=== PATIENT | female | born 1990 | race Two or more races ===

== ENCOUNTER 2025-03-22 00:05 | Emergency (ER) | payer MEDICAID, SELFPAY ==
[2025-03-22 00:06] VITALS: BMI 32.5
[2025-03-22 00:24] VITALS: BP 119/83; PULSE 87; RESP 18; TEMP 36.9; O2SAT 98
--- NOTE | 2025-03-22 00:33 | XR_ITS ---
Examination: Transvaginal ultrasound of the pelvis, complete Technique: Transvaginal sonographic images pelvis performed using walden scale imaging Exam date and time: March 22, thousand 25, 0156 hrs. Indications: Pelvic pain beginning 3 hours ago, history hemorrhagic pelvic cysts Findings: Uterus 8.3 cm endometrial stripe 0.64 cm No uterine mass or intrauterine gestation Moderate free fluid in the cul-de-sac Right ovary 3.7 cm arterial flow. Left ovary 2.1 cm arterial flow Impression: No uterine mass or intrauterine gestation Moderate free fluid in the cul-de-sac, differential would include pelvic inflammatory disease, clinical correlation advised.
--- NOTE | 2025-03-22 00:33 | XR_ITS ---
Examination: CT abdomen and pelvis without contrast. Coronal 3-D reconstructions. Sagittal 2-D reconstructions. Date and time of exam: 926, T2 thousand 25, 0121 hrs., Comparison April 15, 2010 Indications: Onset right-sided flank pain today CTDI: vol (mGy): 11.51 DLP: (mGycm): 634 Technique: Axial images of the abdomen have been obtained, 3 mm slice thickness Intravenous contrast material has not been administered. Low dose protocols were performed. One or more of the following dose reduction techniques were used; automated exposure control, adjustment of the mA and/or KV according to patient size, use of iterative reconstruction technique. Findings: No focal liver or splenic lesion Gallstones No pancreatic or adrenal mass No renal or ureteral calculi, no hydronephrosis Aorta normal size Normal appendix No bowel obstruction Free fluid in the pelvis Prominent right adnexal region Contracted urinary bladder The osseous structures are intact Impression: Cholelithiasis No renal or ureteral calculi, no hydronephrosis Normal appendix Contracted urinary bladder, no bladder mass or bladder calculi
--- NOTE | 2025-03-22 00:35 | PD.EDRME ---
Rapid Medical Screening Exam RME Arrival date/time: 03/22/25 00:05 34F with no significant PMH presents to ED with sudden R flank/pelvic pain and possible hematuria. There is also N/V. Patient is not on cycle. Chief Complaint: Abdominal Pain Vital signs: Vital Signs Temperature 98.4 F 03/22/25 00:24 Pulse Rate 87 03/22/25 00:24 Respiratory Rate 18 03/22/25 00:24 Blood Pressure 119/83 03/22/25 00:24 Pulse Oximetry (%) 98 03/22/25 00:24 Oxygen Delivery Method Room Air 03/22/25 00:24
[2025-03-22 00:47] LABS: Collection Type, Urine Clean Catch
[2025-03-22 00:50] LABS: Basophils # (Auto) 0.1 Thou/mm3 (0.0-0.2); Basophils % (Auto) 0 % (0-2.5); Eosinophils # (Auto) 0.2 Thou/mm3 (0.0-0.5); Eosinophils % (Auto) 2 % (0-10); Hematocrit 38.8 % (36.0-46.0); Hemoglobin 12.7 g/dL (12.0-16.0); Immature Granulocytes Auto 0.05 Thou/mm3 (0.00-0.00); Lymphocytes # (Auto) 2.7 Thou/mm3 (1.0-4.8); Lymphocytes % (Auto) 20 % (10-50); Mean Corpuscular HGB Conc 32.7 g/dl (31.0-37.0); Mean Corpuscular Hemoglobin 27.4 pg (25.0-35.0); Mean Corpuscular Volume 84 fL (80-100); Monocytes # (Auto) 1.0 Thou/mm3 (0.0-0.8); Monocytes % (Auto) 8 % (0-12); Neutrophils # (Auto) 9.4 Thou/mm3 (1.8-7.7); Neutrophils % (Auto) 70 % (37-80); Nucleated Red Blood Cell # 0.00 Thou/mm3 (0.00-0.00); Nucleated Red Blood Cell % 0 /100 WBC (0); Platelet Count 320 Thou/mm3 (140-440); RDW Standard Deviation 40.7 fL (36.4-46.3); Red Blood Count 4.64 Miln/mm3 (4.00-5.20); White Blood Count 13.4 Thou/mm3 (3.6-11.0)
[2025-03-22 00:56] LABS: Bacteria,Urine Rare; Bilirubin,Urine Negative (Negative); Blood,Urine Negative (Negative); Clarity,Urine Clear (Clear/Hazy); Color,Urine Colorless (Lt Yel-Yel); Culture Indicated,Urine Yes; Glucose, Urine Negative (Negative); HCG Qualitative,Urine Negative; Ketones,Urine Negative (Negative); Leukocyte Esterase,Urine Positive (Negative); Nitrite,Urine Negative (Negative); PH,Urine 6.5 (5.0-7.0); Protein,Urine Negative (Neg - Trace); RBC,Urine 1 /hpf (0-3); Specific Gravity,Urine 1.009 (1.001-1.035); Squamous Epithelial Cell,Urine 1 /hpf (0-5); Urobilinogen,Urine Negative mg/dL (0.0-1.0); WBC,Urine 16 /hpf (0-5)
[2025-03-22 00:59] LABS: Amphetamine/Methamp Scrn,U Negative (Negative); Barbiturate Screen,Urine Negative (Negative); Benzodiazepines Screen,Urine Negative (Negative); Benzoylecgonine Screen, Ur Negative (Negative); Fentanyl Screen,Urine Negative (Negative); Opiate Screen,Urine Negative (Negative); THC Screen,Urine Negative (Negative)
[2025-03-22 01:08] LABS: Alanine Aminotransferase 27 U/L (10-49); Albumin, Serum 4.3 gm/dL (3.5-5.0); Albumin/Globulin Ratio 1.9 (1.2-2.2); Alkaline Phosphatase 59 U/L (46-116); Anion Gap 8 (7-16); Aspartate Amino Transferase 25 U/L (0-34); BUN/Creatinine Ratio 9 Ratio (12-20); Bilirubin,Total 0.5 mg/dL (0.3-1.2); Blood Urea Nitrogen 7 mg/dL (9-23); Calcium 9.4 mg/dL (8.3-10.6); Calcium (Corrected) 9.4 mg/dL (8.5-10.1); Carbon Dioxide 27.6 mMol/L (20.0-31.0); Chloride 106 mMol/L (98-107); Creatinine (Component) 0.8 mg/dL (0.6-1.3); Estimated Creatinine Clearance 96.6 mL/min (>60); Globulin 2.3 gm/dL (2.3-3.5); Glucose 91 mg/dL (74-106); Osmolality,Calculated 281 (275-295); Potassium 3.9 mMol/L (3.4-5.1); Sodium 142 mMol/L (136-145); Total Protein 6.6 gm/dL (5.7-8.2); eGFR > 60 See Note
[2025-03-22] MEDS: ONDANSETRON ODT 4 MG TABRAP PO (01:50)
[2025-03-22] MEDS: KETOROLAC INJ 30 MG/ML VIAL IM (01:51)
--- NOTE | 2025-03-22 02:27 | PRELIM_ITS ---
CT scan of the abdomen and pelvis without intravenous contrast (axial sections with sagittal and coronal reformats) March 22, 2025 at 0121 hours Clinical History: Right flank pain. Comparison: None. Findings: No evidence of renal/ureteric calculus or hydroureteronephrosis. The gallbladder is contracted and demonstrates intraluminal hyperdensity, which may represent calculi. The liver, pancreas, spleen and adrenals are unremarkable on this noncontrast study. No evidence of bowel obstruction. The appendix is within normal limits (images [id number]). The urinary bladder is partially distended and shows mild wall thickening; possibility of cystitis cannot be excluded. The uterus is unremarkable. The right adnexa appears prominent with subtle heterogeneous density (image 173/266), measuring 4.7 x 3.6 cm. The right gonadal vein also appears prominent and slightly distended. A small amount of free fluid is seen in the lower abdomen and pelvis. There is no free air. The osseous structures are unremarkable. The lung bases are clear. Please note that evaluation of soft tissue/vascular structures and bowel loops is limited due to absence of IV and oral contrast. Impression: 1. No evidence of renal/ureteric calculus or hydroureteronephrosis. 2. Contracted gallbladder with intraluminal hyperdensity, which may represent calculi. 3. No evidence of acute appendicitis. 4. Prominent heterogeneous right adnexa with free fluid as described, of unclear etiology. Suggest further evaluation with sonography, if clinically indicated. 5. Partially distended urinary bladder with mild wall thickening; possibility of cystitis cannot be excluded. 6. Other findings as described above. Suggest clinical correlation and follow up accordingly. Report Electronically Signed By: Will Davis 03/22/2025 2:26:43 AM [EST]
--- NOTE | 2025-03-22 03:35 | PRELIM_ITS ---
Pelvic ultrasound (transvaginal). March 22, 2025 0156 hours Clinical history: R pelvic pain Technique: Real-time, grayscale, transvaginal pelvic ultrasound was performed using Duplex scanning including arterial inflow, venous outflow, color and spectral Doppler. Findings: The uterus is normal in size measuring 8.3x4.5x5.8cm. The endometrium is unremarkable and measures 0.64cm. No mass or cystic structures are seen. The right ovary measures 3.7x1.7x3.4cm and is unremarkable. The left ovary measures 2.1x1.8x1.4cm and is unremarkable. Both ovaries demonstrate color flow and spectral waveforms on Doppler evaluation. There is no adnexal mass. Jbsx-ij-xhpdmnld amount of free fluid is seen in the cul-de-sac. Impression: No sonographic evidence of ovarian torsion is demonstrated on the submitted images. Yoop-gy-tytmeaxh amount of free fluid is seen in the cul-de-sac. Recommend clinical correlation and follow-up. Report Electronically Signed By: Milton Sher 03/22/2025 3:35:35 AM [EST]
--- NOTE | 2025-03-22 04:38 | PD.EDABDPN ---
ED Abdominal Pain RME/HPI General Chief Complaint: Abdominal Pain Stated complaint: RIGHT LOWER ABD PAIN Time seen by provider: 03/22/25 04:13 Arrival date/time: 03/22/25 00:05 RME / HPI RME / HPI narrative: 03/22/25 00:05 34F with no significant PMH presents to ED with sudden R flank/pelvic pain and possible hematuria. There is also N/V. Patient is not on cycle. DR. KELLER MAIN ED EVALUATION: Patient presents with sudden onset RL abdominal/pelvic pain radiating towards the right flank region shortly after having intercourse this evening. Pain is sharp and constant. No fever, chills, or dysuria. Denies abnormal vaginal discharge. PMH: Ovarian cyst, No DM or HTN. PSH: Ovarian cystectomy Social: Negative for tobacco, alcohol and illicit drug use. Allergies: None Related Data Previous Rx's ?Medication ?Instructions ?Recorded pantoprazole 40 mg tablet,delayed 40 mg PO QDAY #30 tabs 06/05/18 release (Protonix) hydrocodone 5 mg-acetaminophen 325 1 tab PO Q8H PRN pain #20 tabs 03/22/25 mg tablet naproxen 250 mg tablet 250 mg PO BID PRN pain #10 tabs 03/22/25 promethazine 12.5 mg tablet 12.5 mg PO TID PRN nausea and 03/22/25 vomiting #10 tabs Allergies Allergy/AdvReac Type Severity Reaction Status Date / Time No Known Allergies Allergy Verified 03/22/25 00:06 Review of Systems Review of Systems Systems Reviewed: All systems reviewed, normal except as documented Past Medical History Past Medical History REPRODUCTIVE: Positive Previous Pregnancies OTHER HISTORY: Positive Blood Transfusions Surgical History SURGICAL: Positive Section ED Exam Narrative Physical exam: GEN. APPEARANCE: The patient is alert awake oriented X-3 in no distress, lying down comfortably, does not look ill/toxic. Patient has good eye contact. Patient is cooperative. VITALS: All vitals were reviewed and the pulse ox is 98% on room air which is normal according to my interpretation. HEENT: Normocephalic, atraumatic. Pupils are equal and reactive. Oral mucosa is moist. Patent Nares NECK: Supple, nontender, no thyromegaly, no meningismus, no JVD, no step offs CHEST: Symmetrical, atraumatic, and with equal expansion , Nontender on palpation no deformity and no crepitus. CARDIOVASCULAR: Heart regular rhythm no murmur or gallop rub or extra beats. LUNGS: Clear to auscultation bilaterally with symmetrical chest rise. No laboring tachypnea or wheezing. No intercostal subcostal retraction. No rales and no rhonchi. ABDOMEN: Soft, flat, gybr-ug-rwiwvarz tenderness at the suprapubic/RLQ abdomen, slight guarding, no peritoneal findings noted. There are no abnormal masses palpated. Active and normal bowel sounds. EXTREMITIES: Nontender. No edema. No cyanosis. Patient is able to move all 4 extremities well, with full ROM and good CSM. SKIN: Warm and dry, no jaundice or rashes noted. MUSCULOSKELETAL: No lubar or midline bony tenderness. There is no CVA tenderness. No paraspinal muscle spasm or tenderness. NEURO: Patient is HAYNES x 4, Cranial nerves II through XII grossly intact. There is no focal neurologic deficits noted. GCS is 15, PNS and STAFF PHARMACIST appear grossly intact. PSYCHIATRIC: Patient is in normal mood and affect, cooperative, no SI or HI or hallucinations. Course Quality Measures none Orders Category Date Time Status CT abdomen pelvis wo con Stat Exams 03/22/25 00:33 Taken US transvaginal Stat Exams 03/22/25 00:33 Taken CBC Stat Lab 03/22/25 00:40 Completed CBC Stat Lab 03/22/25 04:53 Completed CMP [Comprehensive Metabolic Panel] Stat Lab 03/22/25 00:40 Completed Drug Screen,Urine Stat Lab 03/22/25 00:39 Completed HCG Qualitative,Urine Stat Lab 03/22/25 00:39 Completed Urinalysis, C/S if Indicated Stat Lab 03/22/25 00:39 Completed Urine Culture Stat Lab 03/22/25 00:39 Received Ketorolac Inj [Toradol Inj] Med 03/22/25 00:33 Discontinued 30 mg IM X1 ONE Ondansetron Odt [Zofran Odt] Med 03/22/25 00:35 Discontinued 4 mg PO X1 ONE Sodium Chloride 0.9% 1000 ml [Ns] 1,000 ml Med 03/22/25 04:47 Discontinued IV 999 mls/hr Vital Signs Vital signs: Vital Signs Temperature 98.4 F 03/22/25 00:24 Pulse Rate 87 03/22/25 00:24 Respiratory Rate 18 03/22/25 00:24 Blood Pressure 119/83 03/22/25 00:24 Pulse Oximetry (%) 98 03/22/25 00:24 Oxygen Delivery Method Room Air 03/22/25 00:24 Abdominal Pain MDM MDM Narrative MDM Narrative:: Scribe Attestation: Yojana De La Cruz, am scribing for and in the presence of Dr. Keller. Provider Notation: Although this document has been carefully reviewed, there may still be some phonetic and other typographical errors. These errors are purely grammatical due to imperfections in the software program and should not be construed in any way to compromise the substance of the patient's medical care during this visit. Patient presents with sudden onset RL abdominal/pelvic pain radiating towards the right flank region shortly after having intercourse this evening. Pain is sharp and constant. Please see PE findings. Laboratory markers demonstrate elevated WBC's of 13.4, normal hemoglobin and platelet count. Serum chemistries essentially unremarkable. UA with equivocal infection. Tox screen negative. Patient was placed on monitor, IV established and patient recieved IV NSAIDs and anti-emetics with marked improvement. Patient remained hemodynamically stable throughout ED course. Highly suspect ruptured ovarian cyst. Abdomen/pelvis CT demonstrates zlio-tl-iocflitx fluid in pelvis. US shows adequate ovarian blood flow.. Considered stable for discharge after adequate time of observation. Patient data External records reviewed:: [facility] previous records (No recent ED records available for review.) Clinical information provided by:: patient Social determinants that could affect healthcare access:: none Patient has the following chronic illnesses:: None reported How is presenting disease/condition affected by chronic disease/condition?: no chronic disease Evaluation data The following diagnostics were reviewed and interpreted by me:: lab results and radiology exam(s) Lab and/or radiology exams considered but not ordered:: None Interpretation Summary: RADIOLOGY Transvaginal US: Findings: The uterus is normal in size measuring 8.3x4.5x5.8cm. The endometrium is unremarkable and measures 0.64cm. No mass or cystic structures are seen. The right ovary measures 3.7x1.7x3.4cm and is unremarkable. The left ovary measures 2.1x1.8x1.4cm and is unremarkable. Both ovaries demonstrate color flow and spectral waveforms on Doppler evaluation. There is no adnexal mass. Nsom-qo-hipghgga amount of free fluid is seen in the cul-de-sac. Impression: No sonographic evidence of ovarian torsion is demonstrated on the submitted images. Syod-gz-mzvbnnqn amount of free fluid is seen in the cul-de-sac. Recommend clinical correlation and follow-up. Abdomen/Pelvis CT: Findings: No evidence of renal/ureteric calculus or hydroureteronephrosis. The gallbladder is contracted and demonstrates intraluminal hyperdensity, which may represent calculi. The liver, pancreas, spleen and adrenals are unremarkable on this noncontrast study. No evidence of bowel obstruction. The appendix is within normal limits (images [id number]). The urinary bladder is partially distended and shows mild wall thickening; possibility of cystitis cannot be excluded. The uterus is unremarkable. The right adnexa appears prominent with subtle heterogeneous density (image 173/266), measuring 4.7 x 3.6 cm. The right gonadal vein also appears prominent and slightly distended. A small amount of free fluid is seen in the lower abdomen and pelvis. There is no free air. The osseous structures are unremarkable. The lung bases are clear. Please note that evaluation of soft tissue/vascular structures and bowel loops is limited due to absence of IV and oral contrast. Impression: 1. No evidence of renal/ureteric calculus or hydroureteronephrosis. 2. Contracted gallbladder with intraluminal hyperdensity, which may represent calculi. 3. No evidence of acute appendicitis. 4. Prominent heterogeneous right adnexa with free fluid as described, of unclear etiology. Suggest further evaluation with sonography, if clinically indicated. 5. Partially distended urinary bladder with mild wall thickening; possibility of cystitis cannot be excluded. 6. Other findings as described above. Suggest clinical correlation and follow up accordingly. Medications / Prescriptions Medications or Prescriptions considered but not ordered:: None Medication administrations:: Medication Administration History Discontinued Medications Sodium Chloride (Ns) 1,000 mls @ 999 mls/hr IV .Q1H1M ONE Stop: 03/22/25 05:47 Last Admin: 03/22/25 05:16 Dose: Not Given Documented By: FILI Non-Admin Reason: Cancelled by Provider Ketorolac Tromethamine (Ketorolac Inj 30 Mg/Ml Vial) 30 mg IM X1 ONE Stop: 03/22/25 00:34 Last Admin: 03/22/25 01:51 Dose: 30 mg Documented By: COLEMAN Ondansetron HCl (Ondansetron Odt 4 Mg Tabrap) 4 mg PO X1 ONE; Protocol Stop: 03/22/25 00:36 Last Admin: 03/22/25 01:50 Dose: 4 mg Documented By: COLEMAN See above if any Consultations Consultation(s) initiated? (list below): No Diagnosis Differential diagnosis abdominal pain: abdominal pain, acute appendicitis, calculus of kidney, constipation, diverticulitis, endometriosis and other (Ruptured ovarian cyst, ovarian torsion) Most likely diagnosis given after review of the tests above:: Ruptured ovarian cyst Admission Indicated Admission indicated?: not indicated Explain why admission is indicated or not indicated:: Patient does not meet admission criteria Admission Request Was there a request for admission?: No Disposition Plan Disposition Plan: Discharge Discharge Attestation Discharge Attestation: The patient and all family members were given an opportunity to ask questions and understood the discharge instructions. Discharge instructions specifically effects, indications for sooner follow up or return to the emergency department, and the expected course of current diagnosis. Patient condition: Stable Discharge Plan Plan Patient Disposition: HOME (Self Care) Discharge Disposition comment: Stable Prescriptions/Referrals Prescriptions/Med Rec: New hydrocodone-acetaminophen 5-325 mg tablet 1 tab PO Q8H MDD 3 tabs PRN (Reason: pain) Qty: 20 0RF naproxen 250 mg tablet 250 mg PO BID PRN (Reason: pain) Qty: 10 0RF promethazine 12.5 mg tablet 12.5 mg PO TID PRN (Reason: nausea and vomiting) Qty: 10 0RF No Action pantoprazole [Protonix] 40 mg tablet,delayed release (DR/EC) 40 mg PO QDAY Qty: 30 0RF Referrals: No Primary/Family,Physician [Primary Care Provider] - In 1 week Problem List Clinical Impression: Ruptured ovarian cyst Patient/Caregiver Discharge Instructions Discharge Activity: activity as tolerated Diet Instructions: Force fluids Education Materials: Treatment for Ovarian Cysts Additional Instructions: Medication as directed. Pelvic rest. Follow-up with [facility] physician within 3 to 5 days return if worsening. Print Language: Greek Stand Alone Forms: Herminia Award Info., Work/School Release, Patient Portal Info Letter
[2025-03-22 05:03] LABS: Basophils # (Auto) 0.1 Thou/mm3 (0.0-0.2); Basophils % (Auto) 1 % (0-2.5); Eosinophils # (Auto) 0.2 Thou/mm3 (0.0-0.5); Eosinophils % (Auto) 2 % (0-10); Hematocrit 37.1 % (36.0-46.0); Hemoglobin 12.4 g/dL (12.0-16.0); Immature Granulocytes Auto 0.02 Thou/mm3 (0.00-0.00); Lymphocytes # (Auto) 3.0 Thou/mm3 (1.0-4.8); Lymphocytes % (Auto) 28 % (10-50); Mean Corpuscular HGB Conc 33.4 g/dl (31.0-37.0); Mean Corpuscular Hemoglobin 27.9 pg (25.0-35.0); Mean Corpuscular Volume 84 fL (80-100); Monocytes # (Auto) 1.0 Thou/mm3 (0.0-0.8); Monocytes % (Auto) 9 % (0-12); Neutrophils # (Auto) 6.7 Thou/mm3 (1.8-7.7); Neutrophils % (Auto) 61 % (37-80); Nucleated Red Blood Cell # 0.00 Thou/mm3 (0.00-0.00); Nucleated Red Blood Cell % 0 /100 WBC (0); Platelet Count 303 Thou/mm3 (140-440); RDW Standard Deviation 40.7 fL (36.4-46.3); Red Blood Count 4.44 Miln/mm3 (4.00-5.20); White Blood Count 11.0 Thou/mm3 (3.6-11.0)
[2025-03-22 05:22] VITALS: BP 134/85; PULSE 85; RESP 14; TEMP 37; O2SAT 99
== END 2025-03-22 05:22 | disposition home or self-care (01) ==
PROVIDERS: Physician Assistant; Emergency Provider Emergency Medicine
DX: N83.201 Unspecified ovarian cyst, right side (principal); R18.8 Other ascites; D72.829 Elevated white blood cell count, unspecified
CPT/HCPCS: 36415; 74176; 76830; 80053; 80307; 81001; 81025; 85025; 87077; 87086; 87186; 96372; 99284; J1885; Q0162